=== PATIENT | male | born 1935 | race Caucasian/White ===

== ENCOUNTER 2020-09-22 12:09 | Emergency (ER) | payer MEDICARE, SELFPAY ==
--- NOTE | ~2020-09-22 | XR_ITS ---
EXAMINATION: XR ribs RT 2V INDICATION: Right-sided rib pain TECHNIQUE: 3 views of the right ribs were obtained. COMPARISON: None. FINDINGS: There are questionable nondisplaced fractures sixth and seventh ribs. There is no pleural e ffusion or pneumothorax. 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 Median sternotomy wires and mediastinal surgical clips are seen, likely from prior coronary artery bypass grafting. IMPRESSION: 1. Possible nondisplaced fractures of the sixth and seventh ribs. Reviewed, dictated and finalized at location B.
[2020-09-22 12:17] VITALS: BP 136/65; PULSE 70; RESP 16; TEMP 37.2; O2SAT 97
--- NOTE | 2020-09-22 12:18 | ED.FALL ---
HPI - Fall General Chief Complaint: Fall Stated Complaint: rib pain Time Seen by Provider: 09/22/20 12:18 Source: patient and RN notes reviewed Mode of arrival: ambulatory Limitations: no limitations History of Present Illness HPI Narrative: 84-year-old male presents to the [facility] with complaints of right rib pain. Patient states Monday night he went to get out of bed got tangled in the blankets and fell onto his right side. Denies hitting head. No loss of consciousness. No blurry vision or change in vision. Patient reports that he was in [place] emergency room yesterday for a gallbladder attack. Was not having much pain in the ribs. Related Data Home Medications Medication Instructions Recorded Confirmed carvedilol 3.125 mg PO DAILY 09/22/20 09/22/20 clopidogrel 75 mg PO DAILY 09/22/20 09/22/20 dicyclomine 20 mg PO DAILY 09/22/20 09/22/20 levofloxacin 750 mg PO DAILY 09/22/20 09/22/20 metformin 500 mg PO DAILY 09/22/20 09/22/20 metronidazole 500 mg PO DAILY 09/22/20 09/22/20 rosuvastatin 20 mg PO DAILY 09/22/20 09/22/20 sacubitril-valsartan [Entresto] 1 tablet PO DAILY 09/22/20 09/22/20 Allergies Allergy/AdvReac Type Severity Reaction Status Date / Time No Known Allergies Allergy Unverified 09/22/20 12:16 Review of Systems Review of Systems: All systems reviewed & are unremarkable except as noted in HPI and below Constitutional: Constitutional: Reports no additional constitutional complaints, Denies chills and Denies fever(s) Eyes: Eyes: Reports no additional eye complaints and Denies change in vision ENT: Reports system reviewed and no additional complaints, except as documented Cardiovascular: Cardiovascular: Reports no additional cardiovascular complaints and Denies chest pain Respiratory: Respiratory: Reports no additional respiratory complaints, Denies cough and Denies dyspnea Gastrointestinal: Gastrointestinal: Reports no additional gastrointestinal complaints Musculoskeletal: Musculoskeletal: Reports as per HPI and Reports back pain (Right lateral and posterior ribs lower aspect) Integumentary/Breasts: Skin/Breast: Reports system reviewed and no additional complaints, except as docu, Denies erythema and Denies rash Neurologic: Reports system reviewed and no additional complaints, except as documented Psychiatric: Psychiatric: Reports no additional psychiatric complaints Allergic/Immunologic: Allergic/Immunologic: Reports no additional allergic/immunologic complaints [facility] Past Medical History Medical History (Updated 09/22/20 @ 19:36 by Petra Bolton) Congestive heart failure Diabetes Gallbladder attack Hypertension Thyroid disease Surgical History Surgical History (Updated 09/22/20 @ 19:37 by Petra Bolton) H/O heart surgery Comments At the time of my signature, I reviewed and agree with the nursing past medical, surgical, social, and family history. There is no relevant family history pertinent to the patient complaint. Exam Const: General: healthy appearing, no acute distress and alert Nutritional Appearance: well nourished Orientation/consciousness: patient oriented x3 Limitations: no limitations HENMT: Head: normal to inspection Eyes: Conjunctivae: conjunctivae normal Pupils: Equal, round and reactive pupils present Neck: Neck: normal visual inspection, no lymphadenopathy and no meningeal signs Chest: Chest palpation & inspection: Pacemaker present Resp: Effort & Inspection: normal respiratory effort and no use of accessory muscles Auscultation: clear to auscultation bilaterally, no crackles, no rales, no rhonchi and no wheezes Cardio: Rate: regular rate Rhythm: regular rhythm GI: GI Palp: Yes Soft to palpation and No Tenderness to palpation present (GI) Back/Spine/Pelvis: Cervical Spine: normal cervical lordosis Thoracic/Lumbar Spine: thoracic and lumbar spine normal to inspection Back/spine/pelvis image: 1. Small bruise noted. Tenderness in surroun
[2020-09-22 12:25] VITALS: BP 136/65; PULSE 70; RESP 16; TEMP 37.2; O2SAT 97
--- NOTE | 2020-09-22 13:14 | PC.NURSE ---
1300- pt given an incentive spirometer for home use, and line marked on the 2500 goal. made pt attempt while in room and encouraged pt to get his pain meds and wait an hour after a pain pill to attempt again to use it. 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
== END 2020-09-22 13:02 | disposition home or self-care (01) ==
PROVIDERS: Emergency Provider Nurse Practitioner
DX: R07.81 Pleurodynia (principal); S22.41XA Multiple fractures of ribs, right side, initial encounter for closed fracture; W19.XXXA Unspecified fall, initial encounter; I11.0 Hypertensive heart disease with heart failure; I50.9 Heart failure, unspecified; E11.9 Type 2 diabetes mellitus without complications
CPT/HCPCS: 71100; 99213; G0463

== ENCOUNTER 2020-11-10 12:46 | Emergency (ER) | payer MEDICARE, SELFPAY ==
[2020-11-10 12:57] VITALS: BP 147/67; PULSE 60; RESP 18; TEMP 36.2; O2SAT 100
--- NOTE | 2020-11-10 14:29 | ED.EAR ---
HPI - Ear Problem General Chief complaint: Ear Stated complaint: Clogged Ears Time Seen by Provider: 11/10/20 13:19 Source: patient and RN notes reviewed Mode of arrival: ambulatory Limitations: no limitations History of Present Illness HPI Narrative: Patient presents today complaining of bilateral ear clogging. Patient was at his [employer] and they told him that he had too much wax in his ear to get a hearing test before getting some hearing aids. He has been using wax softening eardrops for several days, but needs help getting the wax completely out. MD Complaint: other (Cerumen impactions) Related Data Home Medications Medication Instructions Recorded Confirmed carvedilol 3.125 mg PO DAILY 09/22/20 11/10/20 clopidogrel 75 mg PO DAILY 09/22/20 11/10/20 rosuvastatin 20 mg PO DAILY 09/22/20 09/22/20 sacubitril-valsartan [Entresto] 1 tablet PO DAILY 09/22/20 11/10/20 ergocalciferol (vitamin D2) 11/10/20 tamsulosin mg PO 11/10/20 Allergies Allergy/AdvReac Type Severity Reaction Status Date / Time No Known Allergies Allergy Verified 11/10/20 13:27 Review of Systems Review of Systems: CONSTITUTIONAL: Denies body aches, fever, chills, or sweats. EYES: Denies visual changes, redness, or discharge. ENT: Denies rhinorrhea, congestion, sore throat, or otalgia.+ Bilateral cerumen impactions CARDIOVASCULAR: Denies chest pain, palpitations, or edema. RESPIRATORY: Denies cough or dyspnea. GASTROINTESTINAL: Denies abdominal pain, nausea, vomiting, or diarrhea. GENITOURINARY: Denies dysuria or hematuria. SKIN: Denies rash, itching, or wounds. MUSCULOSKELETAL: Denies back pain, joint pain, or myalgia. NEUROLOGIC: Denies headache, numbness, tingling, or weakness. PSYCH: Denies depression or anxiety. [facility] Past Medical History Medical History Congestive heart failure Diabetes Gallbladder attack Hypertension Thyroid disease Surgical History Surgical History H/O heart surgery Comments At time of signature, I have reviewed and agree with nursing past medical, surgical, social and family history unless otherwise noted. Please see nursing chart for further information. There is no relevant family history pertinent to the presenting complaint Exam Narrative: GENERAL: Well-appearing, well-nourished, and in no acute distress. HEAD: Normocephalic, atraumatic. EYES: EOMI. No redness or drainage. Conjunctivae normal. ENT: Mucous membranes pink and moist. Bilateral cerumen impactions NECK: Normal AROM. CHEST: No respiratory distress. EXTREMITIES: Normal range of motion. No edema. SKIN: Warm, dry, no rash. Capillary refill normal. Normal skin turgor. NEURO: No focal deficits. Alert and oriented x3. Gait steady. PSYCH: Normal affect. No signs of depression or anxiety. Course Vital Signs Vital signs: Vital Signs Temperature 97.2 F L 11/10/20 12:57 Pulse Rate 60 11/10/20 12:57 Respiratory Rate 18 11/10/20 12:57 Blood Pressure 147/67 H 11/10/20 12:57 Pulse Oximetry 100 11/10/20 12:57 Temperature 97.2 F L 11/10/20 12:57 Pulse Rate 60 11/10/20 12:57 Respiratory Rate 18 11/10/20 12:57 Blood Pressure 147/67 H 11/10/20 12:57 Pulse Oximetry 100 11/10/20 12:57 Reviewed. Pt has been instructed to follow up with his PCP regarding his elevated blood pressure today. Procedures Ear Wax Removal Both Ears: Ear Wax Removal Date: 11/10/20 Ear Wax Removal Time: 14:00 Cerumenolytic Used: other (Hydrogen peroxide) Results: Re-examined: cerumen removed completely TM Examination: TM(s) intact, normal appearance Ear Canal Exam: atraumatic Patient Tolerated Procedure: well Complications: no problems Technique: ear canal irrigated Medical Decision Making Differential Diagnosis Differential Diagnosis: Otitis media, otit
== END 2020-11-10 14:39 | disposition home or self-care (01) ==
PROVIDERS: Emergency Provider Nurse Practitioner
DX: H61.23 Impacted cerumen, bilateral (principal); I11.0 Hypertensive heart disease with heart failure; E11.9 Type 2 diabetes mellitus without complications; E07.9 Disorder of thyroid, unspecified
CPT/HCPCS: 69209; 99213; G0463

== ENCOUNTER 2021-05-06 14:28 | Emergency (ER) | payer MEDICARE, SELFPAY ==
[2021-05-06 14:40] VITALS: BP 140/65; PULSE 60; RESP 18; TEMP 36.5; O2SAT 100
[2021-05-06] MEDS: HYDROGEN PEROXIDE 3% SOLN(*SP) 473 ML BOTTLE 50 ML IRRIGATION (15:01)
--- NOTE | 2021-05-06 15:06 | ED.EAR ---
HPI - Ear Problem General Chief complaint: Ear Stated complaint: Ear Pain Time Seen by Provider: 05/06/21 14:49 Source: patient and RN notes reviewed Mode of arrival: ambulatory Limitations: no limitations History of Present Illness HPI Narrative: Patient presents today complaining of hearing loss to the right ear x4 weeks. He believes he has a cerumen impaction and would like to have it removed. He has been using wax removal drops without relief. Denies pain to the ear or drainage. States he has not allergy appointment to have his hearing aids looked at in 4 days and wants to have his cerumen removed prior to this visit. MD Complaint: decreased hearing Related Data Home Medications Medication Instructions Recorded Confirmed carvedilol 3.125 mg PO DAILY 09/22/20 05/06/21 clopidogrel 75 mg PO DAILY 09/22/20 05/06/21 rosuvastatin 20 mg PO DAILY 09/22/20 05/06/21 sacubitril-valsartan [Entresto] 1 tablet PO DAILY 09/22/20 05/06/21 ergocalciferol (vitamin D2) 1,250 mcg PO DAILY 11/10/20 05/06/21 tamsulosin 0.4 mg PO DAILY 11/10/20 05/06/21 Allergies Allergy/AdvReac Type Severity Reaction Status Date / Time No Known Allergies Allergy Verified 05/06/21 14:34 Review of Systems Review of Systems: CONSTITUTIONAL: Denies body aches, fever, chills, or sweats. EYES: Denies visual changes, redness, or discharge. ENT: Denies rhinorrhea, congestion, sore throat, or otalgia.+ Absent hearing in the right ear CARDIOVASCULAR: Denies chest pain, palpitations, or edema. RESPIRATORY: Denies cough or dyspnea. GASTROINTESTINAL: Denies abdominal pain, nausea, vomiting, or diarrhea. GENITOURINARY: Denies dysuria or hematuria. SKIN: Denies rash, itching, or wounds. MUSCULOSKELETAL: Denies back pain, joint pain, or myalgia. NEUROLOGIC: Denies headache, numbness, tingling, or weakness. PSYCH: Denies depression or anxiety. [facility] Past Medical History Medical History Congestive heart failure Diabetes Gallbladder attack Hypertension Thyroid disease Surgical History Surgical History H/O heart surgery Comments At time of signature, I have reviewed and agree with nursing past medical, surgical, social and family history unless otherwise noted. Please see nursing chart for further information. There is no relevant family history pertinent to the presenting complaint Exam Narrative: GENERAL: Well-appearing, well-nourished, and in no acute distress. HEAD: Normocephalic, atraumatic. EYES: EOMI. No redness or drainage. Conjunctivae normal. ENT: Mucous membranes pink and moist. Nares clear. No rhinorrhea. Right TM with middle ear effusion without evidence of infection.. Small amount of cerumen in the outer portion of the canal. Left TM normal. No cerumen in the canal. Throat normal. Uvula midline. NECK: Normal AROM. Supple. No lymphadenopathy. CHEST: No respiratory distress. Clear to auscultation. HEART: Regular rate and rhythm. No murmur appreciated. Normal peripheral pulses. EXTREMITIES: Normal range of motion. No edema. SKIN: Warm, dry, no rash. Capillary refill normal. Normal skin turgor. NEURO: No focal deficits. Alert and oriented x3. Gait steady. PSYCH: Normal affect. No signs of depression or anxiety. Course Course Level of Care: Express Care Visit Vital Signs Vital signs: Vital Signs Temperature 97.7 F 05/06/21 14:40 Pulse Rate 60 05/06/21 14:40 Respiratory Rate 18 05/06/21 14:40 Blood Pressure 140/65 05/06/21 14:40 Pulse Oximetry 100 05/06/21 14:40 Temperature 97.7 F 05/06/21 14:40 Pulse Rate 60 05/06/21 14:40 Respiratory Rate 18 05/06/21 14:40 Blood Pressure 140/65 05/06/21 14:40 Pulse Oximetry 100 05/06/21 14:40 Reviewed. Pt has been instructed to follow up with his PCP regarding his elevated blood pressure today. Medical Decision Making Differentia
== END 2021-05-06 15:16 | disposition home or self-care (01) ==
PROVIDERS: Emergency Provider Nurse Practitioner
DX: H65.01 Acute serous otitis media, right ear (principal); I11.0 Hypertensive heart disease with heart failure; I50.9 Heart failure, unspecified; E11.9 Type 2 diabetes mellitus without complications; E07.9 Disorder of thyroid, unspecified
CPT/HCPCS: 99211; A9270; G0463

== ENCOUNTER 2021-11-03 14:25 | Emergency (ER) | payer MEDICARE, SELFPAY ==
[2021-11-03 14:33] VITALS: BP 150/68; PULSE 60; RESP 16; TEMP 36.5; O2SAT 98
--- NOTE | 2021-11-03 15:45 | ED.GENADULT ---
HPI - General Adult General Chief complaint: Ear Stated complaint: r/l ear clogged Source: patient Mode of arrival: ambulatory Limitations: no limitations History of Present Illness HPI narrative: Patient presents for evaluation of muffled hearing in both ears. He indicates he went for hearing aid placement yesterday and the provider told him that he could not have them placed because he had bilateral cerumen impactions. Today, he is here requesting bilateral ear irrigation. He denies any tinnitus or drainage from the ears. He has attempted to irrigate his ears in the past with a at home kit. However he has not tried to do so with this episode. Denies any sore throat or respiratory symptoms. No additional complaints or concerns. Related Data Home Medications Medication Instructions Recorded Confirmed carvedilol 3.125 mg tablet 3.125 mg PO DAILY 09/22/20 11/03/21 clopidogrel 75 mg tablet 75 mg PO DAILY 09/22/20 11/03/21 rosuvastatin 20 mg tablet 20 mg PO DAILY 09/22/20 11/03/21 sacubitril 24 mg-valsartan 26 mg 1 tablet PO DAILY 09/22/20 11/03/21 tablet (Entresto) ergocalciferol (vitamin D2) 1,250 1,250 mcg PO DAILY 11/10/20 11/03/21 mcg (50,000 unit) capsule tamsulosin 0.4 mg capsule 0.4 mg PO DAILY 11/10/20 11/03/21 Allergies Allergy/AdvReac Type Severity Reaction Status Date / Time No Known Allergies Allergy Verified 05/06/21 14:34 Review of Systems Review of Systems: CONSTITUTIONAL: Denies fever, chills, or sweats. EYES: Denies visual changes, redness, or discharge. ENT: Reports muffled hearing in both ears. Denies rhinorrhea, congestion, sore throat CARDIOVASCULAR: Denies chest pain, palpitations, or edema. RESPIRATORY: Denies cough or dyspnea. GASTROINTESTINAL: Denies abdominal pain, nausea, vomiting, or diarrhea. GENITOURINARY: Denies dysuria or hematuria. SKIN: Denies rash or itching. MUSCULOSKELETAL: Denies back pain, joint pain, or myalgia. NEUROLOGIC: Denies headache, numbness, dizziness, or weakness. PSYCHIATRIC: Denies anxiety or depression. [facility] Past Medical History Medical History Congestive heart failure Diabetes Gallbladder attack Hypertension Thyroid disease Surgical History Surgical History H/O heart surgery Family History Family History Mother Family history non-contributory Social History Social History Substance use: never Living arrangements: with family Gender identity (if verbalized by the patient): Male Sexual Orientation (if Verbalized by the Patient): Straight or Heterosexual Spiritual care concerns: No Exam Narrative: GENERAL: Well-appearing, well-nourished, and in no acute distress. HEAD: Normocephalic, atraumatic. EYES: PERRLA and EOMI. ENT: Nares clear, no rhinorrhea or epistaxis. Mucous membranes moist. Oropharynx without tonsillar hypertrophy exudate or other lesions. Bilateral ear canals are ceruminous. NECK: Supple. No adenopathy or masses. No carotid bruits or JVD CHEST: Clear to auscultation. No respiratory distress. No wheezes rales or rhonchi HEART: Regular rate and rhythm. No murmur heard. Normal peripheral pulses. ABDOMEN: Soft, nontender, nondistended, normal active bowel sounds. EXTREMITIES: Normal range of motion. No edema. SKIN: Warm, dry, no rash. NEURO: No focal deficits. Alert and oriented x3. PSYCH: Normal mood and affect. Course Course Emergency Course: This is an 85-year-old male who presented for evaluation of muffled hearing in bilateral ears with suspected cerumen impactions. On physical examination, he does have evidence of such. I was able to irrigate his ears and successfully remove cerumen. TM's intact but there was some erythema and small amount of bleeding in both ear can
== END 2021-11-03 15:46 | disposition home or self-care (01) ==
PROVIDERS: Emergency Provider Nurse Practitioner; PCP Internal Medicine
DX: H61.23 Impacted cerumen, bilateral (principal); I11.0 Hypertensive heart disease with heart failure; I50.9 Heart failure, unspecified; E11.9 Type 2 diabetes mellitus without complications
CPT/HCPCS: 69210; 99213; G0463

== ENCOUNTER 2022-02-09 13:09 | Outpatient (CLI) | payer MEDICARE, SELFPAY ==
--- NOTE | ~2022-02-09 | US_ITS ---
EXAMINATION: US scrotum doppler DATE: 02/09/2022 14:10 INDICATION: SWELLING OF RIGHT TESTICLE . TECHNIQUE: Grayscale and Doppler ultrasound images of the testes were obtained. COMPARISON: None. FINDINGS: The right testis measures 4.0 x 2.0 x 2.4 cm. The left testis measures 3.6 x 2.0 x 2.5 cm. No testicular mass. There is normal vascular flow to both testes. The right epididymis is not confide ntly visualized. The left epididymis is normal with normal vascular flow. Large right and small left hydroceles. Left varicocele. IMPRESSION: Large right hydrocele. Small left hydrocele. Small left varicocele. Reviewed, dictated and finalized at location K. [employer]
== END 2022-02-09 13:10 | disposition home or self-care (01) ==
PROVIDERS: PCP Internal Medicine; Visit Provider Nurse Practitioner
DX: N50.89 Other specified disorders of the male genital organs (principal); N43.3 Hydrocele, unspecified; I86.1 Scrotal varices
CPT/HCPCS: 76870; 93976

== ENCOUNTER 2022-09-13 13:10 | Emergency (ER) | payer MEDICARE, SELFPAY ==
[2022-09-13 13:24] VITALS: BP 141/70; PULSE 60; RESP 16; TEMP 37.2; O2SAT 99
--- NOTE | 2022-09-13 14:07 | ED.EAR ---
HPI - Ear Problem General Chief complaint: Ear Stated complaint: Eyes Irritation Source: patient Mode of arrival: ambulatory Limitations: no limitations History of Present Illness HPI Narrative: 86-year-old man presented for complaint of muffled hearing for about 1 week. He stated started in the right ear and now is in the left ear. States he cannot hear the beeping noise when he turns on his hearing aids. He denies ear pain, worsening chronic tinnitus, dizziness, nausea vomiting fevers or chills. MD Complaint: ear pain Related Data Home Medications Medication Instructions Recorded Confirmed carvedilol 3.125 mg tablet 3.125 mg PO DAILY 09/22/20 11/03/21 clopidogrel 75 mg tablet 75 mg PO DAILY 09/22/20 11/03/21 rosuvastatin 20 mg tablet 20 mg PO DAILY 09/22/20 11/03/21 sacubitril 24 mg-valsartan 26 mg 1 tablet PO DAILY 09/22/20 11/03/21 tablet (Entresto) ergocalciferol (vitamin D2) 1,250 1,250 mcg PO DAILY 11/10/20 11/03/21 mcg (50,000 unit) capsule finasteride 09/13/22 Allergies Allergy/AdvReac Type Severity Reaction Status Date / Time No Known Allergies Allergy Verified 09/13/22 13:20 Review of Systems Review of Systems: CONSTITUTIONAL: Denies malaise, chills, or fever. EYES: Denies visual changes, redness, or discharge. ENT: Denies rhinorrhea, congestion, sinus pain, and sore throat. Reports hearing muffled CARDIOVASCULAR: Denies chest pain, palpitations, or edema. RESPIRATORY: Denies cough or dyspnea. GASTROINTESTINAL: Denies abdominal pain, nausea, vomiting, diarrhea SKIN: Denies rash or itching. MUSCULOSKELETAL: Denies myalgia. NEUROLOGIC: Denies headache. All systems reviewed & are unremarkable except as noted in HPI and below PMFSH Past Medical History Medical History Congestive heart failure Diabetes Gallbladder attack Hypertension Thyroid disease Surgical History Surgical History H/O heart surgery Family History Family History Mother Family history non-contributory Social History Social History Substance use: never Living arrangements: with family Gender identity (if verbalized by the patient): Male Sexual Orientation (if Verbalized by the Patient): Straight or Heterosexual Spiritual care concerns: No Comments At time of signature, agree with nursing past medical, surgical, social and family history. There is no relevant family history pertinent to the presenting complaint Exam Narrative: GENERAL: Well-appearing,and in no acute distress. HEAD: Normocephalic EYES: PERRLA, conjunctivae clear ENT: Nares clear. Mucous membranes moist. Bilateral impacted cerumen. After cerumen removal, TMs pearly victoria with dull light reflex bilaterally; no tragal tenderness. NECK: Supple. No lymphadenopathy CHEST: Clear to auscultation, breath sounds equal. No wheezing, rhonchi, rales, or stridor. No respiratory distress, speaks in full sentences. HEART: Regular rate and rhythm. No murmur heard. SKIN: Warm, dry, no rash. NEURO: Alert and oriented x3. PSYCH: Normal mood and affect Course Course Emergency Course: Patient is aware of diagnosis, understands and agrees to treatment plan. Anticipatory guidance given. Patient agrees to follow-up as directed and is aware of reasons to seek care at the emergency department. Portions of this record may have been created with voice recognition software Level of Care: Express Care Visit Vital Signs Vital signs: Vital Signs Temperature 98.9 F 09/13/22 13:24 Pulse Rate 60 09/13/22 13:24 Respiratory Rate 16 09/13/22 13:24 Blood Pressure 141/70 H 09/13/22 13:24 Pulse Oximetry 99 09/13/22 13:24 Oxygen Delivery Room Air 09/13/22 13:24 Temperature 98.9 F 09/13/22 13:24 Pulse Rate
== END 2022-09-13 14:49 | disposition home or self-care (01) ==
PROVIDERS: Emergency Provider Nurse Practitioner Family; PCP Internal Medicine
DX: H61.23 Impacted cerumen, bilateral (principal); I11.0 Hypertensive heart disease with heart failure; I50.9 Heart failure, unspecified; E11.9 Type 2 diabetes mellitus without complications
CPT/HCPCS: 69210; 99212; G0463

== ENCOUNTER 2022-12-27 00:41 | Day surgery (SDC) | payer MEDICARE, SELFPAY ==
--- NOTE | 2022-12-23 08:35 | PC.NURSE ---
Report to the Outpatient Waiting Room, entrance under the green pavilion located off [facility], at time __1000 on date ___12/27/22____. Planned Procedure Time: __1200 . Time changes happen often and if your time is changed the preop area will call you the afternoon before. - You and your visitor will be asked to self-screen and do not enter if you have any COVID symptoms. - A mask is optional within the hospital at this time. Patients may have clear liquids (water, carbonated beverages, clear teas, apple juice) until 3 hours prior to surgery with a maximum of 20 ounces. - No food from midnight until time of surgery - Infants may have breast milk until 4 hours before surgery, formula 6 hours prior to surgery. - Children will be allowed to drink immediately following surgery. If applicable, please bring a bottle or sippy cup to assist with drinking. Juice, water, soda, and popsicles are readily available. For infants on formula, please bring formula the day of surgery. Pacifiers are allowed. Take the following medications with a SIP of water the morning of surgery: NONE DO NOT STOP ANY OF YOUR OTHER PRESCRIPTION MEDICATIONS PRIOR TO SURGERY ?EXCEPT THE FOLLOWING Medications to discontinue per physician _PATIENT STATES HOLD ASPIRIN AND PLAVIX PER DR SAPP. LAST DOSE 12/20/22. HOLD ALL VITAMINS/SUPP 3 DAYS PRE OP.LAST DOSE 1 02/22/22 Please no make-up, nail burmese, hairspray, perfume, deodorant, or body powder the day of surgery. No jewelry (including any body piercings) or valuables the day of surgery, leave them at home. Please take a shower or bath the night before, or the morning of, surgery with an antibacterial soap. Wear comfortable, loose fitting clothing. Children are encouraged to wear pajamas. - Jewelry must be removed prior to entering the operating room. Rings and piercings that are not removed may be cut off. - The hospital will not accept responsibility for valuables. - Please leave all valuables, including medications, at home the day of surgery. If you are going home after surgery, a licensed swing driver must drive you home. - NO public transportation without another adult if you receive anesthesia. - We recommend that an adult stay with you for 24 hours following discharge. - We also recommend that you do not drive, make important decision, drink alcoholic beverages, or take any drugs that were not prescribed by your health care provider for at least 24 hours after your discharge time. For Pediatric surgeries, we recommend two adults accompany the child home. Follow any additional instructions given to you from your surgeon. If you or anyone in your household have experienced Covid symptoms in the past week, please notify your surgeon or the nurse liaison at the phone number below for possible testing. Telephone instructions given to __PATIENT and asked if any additional questions and then verbalized understanding. Patient advised to call surgeon office or pre surgery nurse liaison [phone] if any additional questions.
[2022-12-23 08:43] VITALS: BMI 26.2
[2022-12-27] VITALS (10 sets, daily range): BP systolic 151–197; BP diastolic 67–91; PULSE 62–78; RESP 11–20; TEMP 36.1–36.2; O2SAT 98–100
--- NOTE | 2022-12-27 09:55 | WPDHPUPDATE1 ---
History and Physical Update Update Date/Time: 12/27/22 09:55 History and Physical has been reviewed, including an updated exam of the patient. There are NO changes in the patient's condition. Risks, benefits, and alternatives have been discussed and questions answered. Patient agrees to proceed with procedure. Proceed with right hydrocelectomy and orchiopexy
--- NOTE | 2022-12-27 10:28 | ECG_ITS ---
Measurements Intervals [place] Rate: 61 P: 118 AK: 183 QRS: -45 QRSD: 205 T: 75 QT: 499 QTc: 504 Interpretive Statements ELECTRONIC ATRIAL PACEMAKER WITH INHIBITION ELECTRONIC VENTRICULAR PACEMAKER NO FURTHER INTERPRETATION IS POSSIBLE ATYPICAL ECG NO PREVIOUS ECG AVAILABLE FOR COMPARISON Electronically Signed On 12-27-2022 10:48:50 [employer] by Issa Aguilar D.O.
[2022-12-27] MEDS: LACTATED RINGERS 1,000 ML 30 ML IV CONT (10:55)
--- NOTE | 2022-12-27 11:23 | P.PNAN_ITS ---
Anes - Initial Pre Proc Eval Procedure: Operation Date: 12/27/22 12:00 Proposed Procedures p Right Hydrocelectomy with Orchiopexy - Franko Ayoub MD Date/Time: 12/27/22 11:23 Surgeon: Franko Ayoub MD Pre Op Diagnosis: Right Hydrocele Patient Data Age: 87 Gender: M Height: 1.77 m Weight: 85.2 kg Last Vital Signs Temp 36.2 C L 12/27/22 10:21 Pulse 66 12/27/22 10:21 Resp 20 12/27/22 10:21 BP 180/80 H 12/27/22 10:21 Pulse Ox 99 12/27/22 10:21 O2 Del Method Room Air 12/27/22 10:21 Allergies Allergy/AdvReac Type Severity Reaction Status Date / Time No Known Allergies Allergy Verified 12/27/22 11:01 Home Medications Medication Instructions Recorded Confirmed Type clopidogrel 75 mg tablet 75 mg PO DAILY 09/22/20 12/27/22 History sacubitril 24 mg-valsartan 26 mg 1 tablet PO DAILY 09/22/20 12/27/22 History tablet (Entresto) aspirin 81 mg tablet,delayed 81 mg PO DAILY 12/23/22 12/27/22 History release (Adult Low Dose Aspirin) cholecalciferol (vitamin D3) 1,250 1,250 mcg PO WEEKLY 12/23/22 12/27/22 History mcg (50,000 unit) capsule finasteride 5 mg tablet 5 mg PO DAILY 12/23/22 12/27/22 History multivitamin 1 tablet PO DAILY 12/23/22 12/27/22 History rosuvastatin 10 mg tablet 10 mg PO DAILY 12/23/22 12/27/22 History Patient hx anesthesia problems: none Family hx anesthesia problems: none Results Review: All pre-operative results and documents have been reviewed as part of the pre- operative evaluation. [facility] Past Medical History Medical History Congestive heart failure Diabetes Gallbladder attack Hypertension Thyroid disease Surgical History Surgical History H/O heart surgery Family History Family History Mother Family history non-contributory Social History Social History Smoking status: Never smoker Alcohol intake: current Drinks per week: 1 Substance use: never Living arrangements: alone Gender identity (if verbalized by the patient): Male Sexual Orientation (if Verbalized by the Patient): Straight or Heterosexual Spiritual care concerns: No Anes - Eval Final PreProcedure Day of Procedure 12/27/22 11:23 Patient weight: normal Heart: regular rate and rhythm Lungs: clear to auscultation Airway: Mallampati scale class II Neurological: alert and oriented Last oral intake: >/= 8 hours ASA classification: III Emergent: no Anesthetic plan: proceed Anesthesia type and monitoring: general LMA and standard monitoring Results Review: All pre-operative results and documents have been reviewed as part of the pre- operative evaluation. Informed Consent: The patient's anesthetic plan and its attendant risks and benefits were discussed with the patient/family/POA. Questions were solicited and answers provided to the satisfaction of the patient/family/POA.
[2022-12-27] MEDS: LIDOCAINE HCL 1% LOCAL INJ 20 ML VIAL INFILTRATE (11:47)
[2022-12-27] MEDS: ceFAZolin 2 GM/D5W 50 ML 2 GM/50 ML BAG IVPB (11:47)
[2022-12-27] MEDS: NEOMYCIN/POLYMYXIN/BACITRACIN OINTMENT 15 GM TUBE 1 APPLIC TOPICAL (12:22)
--- NOTE | 2022-12-27 12:39 | W.PM.PROC2 ---
Procedure Note - Detailed Date of Procedure 12/27/22 Pre-op Diagnosis Right Hydrocele Post-op Diagnosis Same Procedure Performed Right hydrocelectomy, right orchiopexy Surgeon Franko Ayoub MD Anesthesia General Description of Procedure Patient is taken to the operative suite correctly identified. Once anesthesia was obtained he was placed in the supine position prepped draped usual sterile fashion. Right transverse hemiscrotal incision was made. This carried down to the tunical layers. The hydrocele sac was brought into the operative field. This was opened and 350 cc of straw-colored fluid was removed. The excess tissue was then excised and the edges fulgurated. He had a few small little cyst over the epididymis which were fulgurated. Orchiopexy was then performed using Ethibond in a 3.6 ureter. [place] was closed using 3-0 chromic in a running fashion. Quarter-inch [place] drain had been placed through a separate stab incision and secured using 3-0 chromic. The wound was anesthetized using 1% lidocaine. Skin was closed using 3-0 chromic in a running fashion. Patient tolerated procedure well without any complications taken recovery stable condition. He will follow-up in 2-3 weeks time. Instructions to remove the drain or Monday if there is minimal drainage. He is uncomfortable doing it himself he will need to come to the office. This completes dictation. Please send a copy of this op note to my office. Estimated Blood Loss 0 Drains Yes Packing No Pathology Yes Complications No immediate complications Condition Stable Disposition PACU
--- NOTE | 2022-12-27 13:30 | SUR.PHASEI ---
Dr. Rodriguez notified of patient's SBP elevated 190's. Order for IV hydralazine received. See MAR for documentation.
[2022-12-27] MEDS: hydrALAZINE HCL 20 MG/ML VIAL 10 MG IV PUSH (13:34)
== END 2022-12-27 15:54 | disposition home or self-care (01) ==
PROVIDERS: Visit Provider Urology
PROC: (CPT 55040; principal; 2022-12-27 12:00)
DX: N43.3 Hydrocele, unspecified (principal); N50.89 Other specified disorders of the male genital organs; N40.1 Benign prostatic hyperplasia with lower urinary tract symptoms; R35.1 Nocturia; I11.0 Hypertensive heart disease with heart failure; I50.9 Heart failure, unspecified; Z95.0 Presence of cardiac pacemaker; F10.90 Alcohol use, unspecified, uncomplicated; Z79.02 Long term (current) use of antithrombotics/antiplatelets; Z79.82 Long term (current) use of aspirin; Z95.1 Presence of aortocoronary bypass graft
CPT/HCPCS: 55040; 54640; 88302; 93005; A9270; J0360; J0690; J1100; J2405; J2704; J3010; J7120

== ENCOUNTER 2023-08-22 12:49 | Emergency (ER) | payer MEDICARE, SELFPAY ==
--- NOTE | 2023-08-22 13:01 | ED.EAR ---
HPI - Ear Problem General Chief complaint: Ear Stated complaint: both ears plugged up Time Seen by Provider: 08/22/23 13:10 Source: patient and RN notes reviewed Mode of arrival: ambulatory Limitations: no limitations History of Present Illness HPI Narrative: 87-year-old male presents with concern for his ears being ?plugged up?. Reports decreased hearing despite wearing his hearing aids. He denies drainage from the ear pain. He denies upper respiratory symptoms MD Complaint: decreased hearing Related Data Home Medications Medication Instructions Recorded Confirmed clopidogrel 75 mg tablet 75 mg PO DAILY 09/22/20 08/22/23 sacubitril 24 mg-valsartan 26 mg 1 tablet PO DAILY 09/22/20 08/22/23 tablet (Entresto) aspirin 81 mg tablet,delayed 81 mg PO DAILY 12/23/22 08/22/23 release (Adult Low Dose Aspirin) cholecalciferol (vitamin D3) 1,250 1,250 mcg PO WEEKLY 12/23/22 08/22/23 mcg (50,000 unit) capsule finasteride 5 mg tablet 5 mg PO DAILY 12/23/22 08/22/23 multivitamin 1 tablet PO DAILY 12/23/22 08/22/23 rosuvastatin 10 mg tablet 10 mg PO DAILY 12/23/22 08/22/23 Allergies Allergy/AdvReac Type Severity Reaction Status Date / Time No Known Allergies Allergy Verified 08/22/23 13:03 Review of Systems Review of Systems: CONSTITUTIONAL: Denies malaise, chills, sweats, or fever. EYES: Denies visual changes, redness, or discharge. ENT: Denies rhinorrhea, congestion, sinus pain, and sore throat. Reports bilateral ear fullness CARDIOVASCULAR: Denies chest pain, palpitations, or edema. RESPIRATORY: Denies cough. Denies dyspnea. GASTROINTESTINAL: Denies abdominal pain, nausea, vomiting, diarrhea SKIN: Denies rash or itching. MUSCULOSKELETAL: Denies myalgia. NEUROLOGIC: Denies headache. All systems reviewed & are unremarkable except as noted in HPI and below PMFSH Past Medical History Medical History Congestive heart failure Diabetes Gallbladder attack Hypertension Thyroid disease Surgical History Surgical History H/O heart surgery Family History Family History Mother Family history non-contributory Social History Social History Smoking status: Never smoker Alcohol intake: current Drinks per week: 1 Substance use: never Living arrangements: alone Gender identity (if verbalized by the patient): Male Sexual Orientation (if Verbalized by the Patient): Straight or Heterosexual Spiritual care concerns: No Comments At time of signature, agree with nursing past medical, surgical, social and family history. There is no relevant family history pertinent to the presenting complaint Exam Narrative: GENERAL: Well-appearing, well-nourished, and in no acute distress. HEAD: Normocephalic EYES: PERRLA, conjunctivae clear ENT: Nares clear. Mucous membranes moist. TM not visible due to excess cerumen bilaterally; no tragal tenderness. Oropharynx not erythematous without lesions. Tonsils not enlarged and without exudate, no drooling, no hoarseness, no trismus, uvula midline. NECK: Supple. No lymphadenopathy CHEST: Clear to auscultation, breath sounds equal. No wheezing, rhonchi, rales, or stridor. No respiratory distress, speaks in full sentences. HEART: Regular rate and rhythm. No murmur heard. SKIN: Warm, dry, no rash. NEURO: Alert and oriented x3. PSYCH: Normal mood and affect Course Course Emergency Course: Patient is aware of diagnosis, understands and agrees to treatment plan. Anticipatory guidance given. Patient agrees to follow-up as directed and is aware of reasons to seek care at the emergency department. Portions of this record may have been created with voice recognition software Level of Care: Express Care Visit Vital Signs Vital signs: Reviewed. Procedures
[2023-08-22 13:03] VITALS: BP 144/60; PULSE 60; RESP 14; TEMP 36.3; O2SAT 99
== END 2023-08-22 13:29 | disposition home or self-care (01) ==
PROVIDERS: Emergency Provider Nurse Practitioner
DX: H61.23 Impacted cerumen, bilateral (principal); I11.0 Hypertensive heart disease with heart failure; I50.9 Heart failure, unspecified; E11.9 Type 2 diabetes mellitus without complications; Z79.82 Long term (current) use of aspirin
CPT/HCPCS: 69210; 99212; G0463